=== PATIENT | female | born 2000 ===

== ENCOUNTER 2025-10-25 07:28 | Emergency (ER) | payer OTHER, SELFPAY ==
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
[2025-10-25 07:30] VITALS: BP 138/83; PULSE 100; RESP 18; TEMP 36.4; O2SAT 98; BMI 21.4
--- OUTSIDE RECORDS SUMMARY | 2025-10-25 07:58 | XMS_ITS ---
Author Name [facility] Organization Unknown Care Team Organization Name Specialty Phone Email Start Date End Da te [facility] 10/04/2022 07/15/20 24
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
[2025-10-25 10:54] VITALS: BP 138/83; PULSE 100; RESP 18; TEMP 36.4; O2SAT 98
== END 2025-10-25 10:54 | disposition home or self-care (01) ==
PROVIDERS: Emergency Provider Emergency Medicine; PCP Internal Medicine
DX: S16.1XXA Strain of muscle, fascia and tendon at neck level, initial encounter (principal); R51.9 Headache, unspecified; M54.2 Cervicalgia; V43.52XA Car driver injured in collision with other type car in traffic accident, initial encounter; Y93.9 Activity, unspecified; Y92.410 Unspecified street and highway as the place of occurrence of the external cause; Y99.8 Other external cause status
CPT/HCPCS: 70450; 72125; 99283; 99284